=== PATIENT | female | born 1950 | race Caucasian/White ===

== ENCOUNTER 2017-10-28 16:20 | Inpatient (IN) | payer MEDICARE, OTHER ==
[~2017-10-28] VITALS: Ht 160 cm; Wt 83.2 kg
[2017-10-28 16:41] LABS: BASOPHILS # (AUTO) 0.04 x10^3/uL (0-0.1); BASOPHILS % (AUTO) 0 % (0-1); EOSINOPHILS # (AUTO) 0.16 x10^3/uL (0-0.4); EOSINOPHILS % (AUTO) 2 % (1-7); LYMPHOCYTES # (AUTO) 3.35 x10^3/uL (1-3.4); LYMPHOCYTES % (AUTO) 37 % (22-44); MD NO; MEAN CORPUSCULAR HEMOGLOBIN 30.2 pg (27.0-34.8); MEAN CORPUSCULAR HGB CONC 32.7 g/dL (32.4-35.8); MEAN CORPUSCULAR VOLUME 92.3 fL (80-100); MEAN PLATELET VOLUME 7.5 fL (7.4-10.4); MONOCYTES # (AUTO) 0.58 x10^3/uL (0.2-0.8); MONOCYTES % (AUTO) 6 % (2-9); NEUTROPHILS # (AUTO) 4.91 x10^3/uL (1.8-6.8); NEUTROPHILS % (AUTO) 54 % (42-75); PLATELET COUNT 367 x10^3/uL (130-400); RED BLOOD COUNT 4.66 x10^6/uL (3.82-5.3); RED CELL DISTRIBUTION WIDTH 14.6 % (9.6-15.2)
[2017-10-28 16:46] LABS: INTERNATIONAL NORMALIZED RATIO 1.01 (0.93-1.1); PROTHROMBIN TIME 10.4 Seconds (9.6-11.5)
[2017-10-28] MEDS ORDERED: PLEASE ENTER HEIGHT AND WEIGHT MC SCH (17:00)
[2017-10-28] MEDS: PLEASE ENTER ALLERGIES MC SCH (17:00)
[2017-10-28] MEDS ORDERED: DEXAMETHASONE 4 MG/ML, 1ML IVPush ONE (17:00)
[2017-10-28] MEDS ORDERED: LEVETIRACETAM 1,000 MG in SODIUM CHLORIDE 0.9% 100 ML IV ONE (17:00)
[2017-10-28] MEDS ORDERED: LORazepam 2 MG/ML, 1ML ONE (17:36)
[2017-10-28] MEDS ORDERED: DEXAMETHASONE 4 MG/ML, 5ML ONE (17:59)
[2017-10-28] MEDS ORDERED: FILTER 0.22 MICRON IV ONE (18:00)
[2017-10-28] MEDS ORDERED: LORazepam 2 MG/ML, 1ML IVPush ONE (18:00)
[2017-10-28] MEDS ORDERED: PHENYTOIN SODIUM 1,000 MG in SODIUM CHLORIDE 0.9% 100 ML IVPB ONE (18:00)
[2017-10-28] MEDS ORDERED: FENTANYL PF 100 MCG/2ML ONE (18:27)
[2017-10-28] MEDS ORDERED: FENTANYL PF 100 MCG/2ML IVPush ONE (18:30)
[2017-10-28] MEDS ORDERED: HYDROCODONE (19:04)
[2017-10-28] MEDS ORDERED: ASPIRIN (19:04)
[2017-10-28] MEDS ORDERED: LISINOPRIL (19:04)
[2017-10-28] MEDS ORDERED: GABAPENTIN (19:04)
[2017-10-28] MEDS ORDERED: SPIRONOLACTONE (19:04)
[2017-10-28] MEDS ORDERED: COREG (19:04)
[2017-10-28] MEDS ORDERED: BISACODYL 10 MG SUPP PR PRN (21:00)
[2017-10-28] MEDS ORDERED: ONDANSETRON 2MG/ML, 2ML IVPush PRN (21:00)
[2017-10-28] MEDS ORDERED: LORazepam 2 MG/ML, 1ML IVPush PRN (21:00)
[2017-10-28] MEDS ORDERED: POLYETHYLENE GLYCOL 17 GM PACKET PO PRN (21:00)
[2017-10-28] MEDS ORDERED: hydrALAzine 20 MG/ML, 1ML IVPush PRN (21:00)
[2017-10-28] MEDS ORDERED: ONDANSETRON ODT 4 MG PO PRN (21:00)
[2017-10-28] MEDS ORDERED: ENALAPRILAT 1.25 MG/ML, 2ML IVPush PRN (21:00)
[2017-10-28] MEDS ORDERED: LABETALOL 5MG/ML, 20ML IVPush PRN (21:00)
[2017-10-28] MEDS ORDERED: PROMETHAZINE 25 MG/ML, 1ML IM PRN (21:00)
[2017-10-28 21:31] LABS: FREE T4 (FREE THYROXINE) 0.99 ng/dL (0.76-1.46); THYROID STIMULATING HORMONE 1.19 mIU/L (0.358-3.740)
[2017-10-28 21:42] VITALS: BP 111/74
[2017-10-28 21:51] LABS: HEMOGLOBIN A1C 7.9 % (4.2-6.3)
[2017-10-28] MEDS: SODIUM CHLORIDE 0.9% 1,000 ML IV SCH (22:39)
[2017-10-28] MEDS: PANTOPRAZOLE 40 MG IV IVPush SCH (22:42)
[2017-10-28] MEDS: PHENYTOIN 100 MG CAPSULE PO SCH (22:42)
[2017-10-28] MEDS: LEVETIRACETAM 500 MG TABLET PO SCH (23:52)
[2017-10-29] MEDS: PLEASE ENTER ALLERGIES MC SCH (01:00)
[2017-10-29 02:01] VITALS: BP 114/73
[2017-10-29] MEDS: DEXAMETHASONE 4 MG TABLET PO SCH ×5 (02:01→20:39)
[2017-10-29 02:06] LABS: MICROSCOPIC AUTO
[2017-10-29 02:08] LABS: CULTURE INDICATED? NO
[2017-10-29 04:29] LABS: BASOPHILS # (AUTO) 0.01 x10^3/uL (0-0.1); BASOPHILS % (AUTO) 0 % (0-1); EOSINOPHILS % (AUTO) 0 % (1-7); LYMPHOCYTES # (AUTO) 1.05 x10^3/uL (1-3.4); LYMPHOCYTES % (AUTO) 15 % (22-44); MD NO; MEAN CORPUSCULAR HEMOGLOBIN 30.4 pg (27.0-34.8); MEAN CORPUSCULAR HGB CONC 33.5 g/dL (32.4-35.8); MEAN CORPUSCULAR VOLUME 90.8 fL (80-100); MEAN PLATELET VOLUME 7.3 fL (7.4-10.4); MONOCYTES # (AUTO) 0.04 x10^3/uL (0.2-0.8); MONOCYTES % (AUTO) 1 % (2-9); NEUTROPHILS # (AUTO) 5.89 x10^3/uL (1.8-6.8); NEUTROPHILS % (AUTO) 84 % (42-75); PLATELET COUNT 313 x10^3/uL (130-400); RED BLOOD COUNT 4.72 x10^6/uL (3.82-5.3); RED CELL DISTRIBUTION WIDTH 14.6 % (9.6-15.2)
[2017-10-29 04:44] LABS: ALBUMIN 3.6 g/dL (3.4-5.0); ANION GAP 7 mmol/L (5-15); CALCIUM 8.1 mg/dL (8.5-10.1); CHLORIDE 107 mmol/L (98-107)
[2017-10-29 04:48] LABS: ALANINE AMINOTRANSFERASE 20 U/L (12-78); ALKALINE PHOSPHATASE 54 U/L (45-117); BILIRUBIN,TOTAL 0.6 mg/dL (0.2-1.0); CHOL/HDL RATIO 4.4; CHOLESTEROL, TOTAL 167 mg/dL (140-239); CREATININE 0.88 mg/dL (0.55-1.02); HDL CHOL % 23 % (28-40); HDL CHOLESTEROL (DIRECT) 38 mg/dL (40-60); LDL CHOLESTEROL,CALCULATED 105 mg/dL (54-169); LDL/HDL RATIO 2.8 (0.5-3.0); TOTAL PROTEIN 7.1 g/dL (6.4-8.2); TRIGLYCERIDES 121 mg/dL (50-200); VLDL CHOLESTEROL 24 mg/dL (0-25)
[2017-10-29] MEDS: ACETAMINOPHEN 325 MG TABLET PO PRN (06:03)
[2017-10-29] MEDS: CARVEDILOL 3.125 MG TABLET PO SCH ×2 (06:03→20:39)
[2017-10-29 06:36] VITALS: BP 106/68
[2017-10-29] MEDS ORDERED: SODIUM CHLORIDE NASAL SPRAY 45ML BOTTLE NAS PRN (07:00)
[2017-10-29] MEDS: LEVETIRACETAM 500 MG TABLET PO SCH ×2 (08:18→20:39)
[2017-10-29] MEDS: LISINOPRIL 10 MG TABLET PO SCH (08:18)
[2017-10-29] MEDS: PANTOPRAZOLE 40 MG IV IVPush SCH (08:18)
[2017-10-29] MEDS: SODIUM CHLORIDE 0.9% 1,000 ML IV SCH (08:18)
[2017-10-29] MEDS: PHENYTOIN 100 MG CAPSULE PO SCH ×3 (08:18→20:39)
[2017-10-29] MEDS: SENNA/DOCUSATE TABLET PO SCH (08:22)
[2017-10-29] MEDS ORDERED: GADOBUTROL 10 MMOL/10 ML PFS ONE (09:29)
[2017-10-29 12:02] VITALS: BP 116/64
[2017-10-29] MEDS ORDERED: OMNIPAQUE 350 MG/ML, 100ML BOTTLE ONE (18:00)
[2017-10-29 18:31] VITALS: BP 123/80
[2017-10-29] MEDS: PANTOPRAZOLE 20MG TABLET PO SCH (20:39)
[2017-10-30] VITALS (13 sets, daily range): BP systolic 110–147; BP diastolic 51–91
[2017-10-30] MEDS: SODIUM CHLORIDE 0.9% 1,000 ML IV SCH ×3 (00:16→18:20)
[2017-10-30] MEDS: DEXAMETHASONE 4 MG TABLET PO SCH ×4 (03:28→20:03)
[2017-10-30] MEDS: CARVEDILOL 3.125 MG TABLET PO SCH ×2 (04:19→18:22)
[2017-10-30] MEDS: OXYcodone IR 5MG TABLET PO PRN ×4 (07:16→23:04)
[2017-10-30] MEDS: PHENYTOIN 100 MG CAPSULE PO SCH ×3 (08:52→20:04)
[2017-10-30] MEDS: LEVETIRACETAM 500 MG TABLET PO SCH ×2 (08:52→20:03)
[2017-10-30] MEDS: LISINOPRIL 10 MG TABLET PO SCH (08:53)
[2017-10-30] MEDS: PANTOPRAZOLE 20MG TABLET PO SCH ×2 (08:53→20:03)
[2017-10-30] MEDS: SENNA/DOCUSATE TABLET PO SCH (08:53)
[2017-10-30] MEDS: ACETAMINOPHEN 325 MG TABLET PO PRN (20:03)
[2017-10-31 01:00] VITALS: BP 126/79
[2017-10-31] MEDS ORDERED: CALCIUM CARBONATE 500 MG TAB.CHEW PO ONE (01:30)
[2017-10-31] MEDS: OXYcodone IR 5MG TABLET PO PRN ×3 (02:53→20:39)
[2017-10-31] MEDS: DEXAMETHASONE 4 MG TABLET PO SCH ×4 (02:53→20:39)
[2017-10-31 04:18] LABS: BASOPHILS # (AUTO) 0.02 x10^3/uL (0-0.1); BASOPHILS % (AUTO) 0 % (0-1); EOSINOPHILS % (AUTO) 0 % (1-7); LYMPHOCYTES # (AUTO) 1.45 x10^3/uL (1-3.4); LYMPHOCYTES % (AUTO) 13 % (22-44); MD NO; MEAN CORPUSCULAR HGB CONC 32.8 g/dL (32.4-35.8); MEAN CORPUSCULAR VOLUME 91.4 fL (80-100); MEAN PLATELET VOLUME 7.5 fL (7.4-10.4); MONOCYTES # (AUTO) 0.54 x10^3/uL (0.2-0.8); MONOCYTES % (AUTO) 5 % (2-9); NEUTROPHILS # (AUTO) 9.62 x10^3/uL (1.8-6.8); NEUTROPHILS % (AUTO) 83 % (42-75); PLATELET COUNT 322 x10^3/uL (130-400); RED BLOOD COUNT 4.17 x10^6/uL (3.82-5.3); RED CELL DISTRIBUTION WIDTH 14.5 % (9.6-15.2)
[2017-10-31 04:27] LABS: CHLORIDE 108 mmol/L (98-107)
[2017-10-31 04:36] LABS: ANION GAP 7 mmol/L (5-15); CALCIUM 8.8 mg/dL (8.5-10.1); CREATININE 0.92 mg/dL (0.55-1.02)
[2017-10-31] MEDS: SODIUM CHLORIDE 0.9% 1,000 ML IV SCH (05:35)
[2017-10-31] MEDS: CARVEDILOL 3.125 MG TABLET PO SCH ×2 (05:39→18:03)
[2017-10-31 06:45] VITALS: BP 153/77
[2017-10-31] MEDS ORDERED: FLUMAZENIL 0.1 MG/1 ML, 5ML ONE (08:19)
[2017-10-31] MEDS ORDERED: NALOXONE 1 MG/ML, 2ML ONE (08:19)
[2017-10-31] MEDS ORDERED: MIDAZOLAM 1 MG/ML, 5ML ONE (08:19)
[2017-10-31] MEDS ORDERED: FENTANYL PF 100 MCG/2ML ONE ×2 (08:19)
[2017-10-31] MEDS: LEVETIRACETAM 500 MG TABLET PO SCH ×2 (08:37→20:39)
[2017-10-31] MEDS: PHENYTOIN 100 MG CAPSULE PO SCH ×3 (08:37→20:39)
[2017-10-31 12:30] VITALS: BP 144/84
[2017-10-31] MEDS: SENNA/DOCUSATE TABLET PO SCH (16:23)
[2017-10-31] MEDS: LISINOPRIL 10 MG TABLET PO SCH (16:24)
[2017-10-31] MEDS: PANTOPRAZOLE 20MG TABLET PO SCH ×2 (16:24→20:39)
[2017-10-31 18:36] VITALS: BP 108/72
[2017-11-01] MEDS: morphine SULFATE 10 MG/ML, 1ML IVPush PRN (00:02)
[2017-11-01 00:58] VITALS: BP 133/84
[2017-11-01] MEDS: DEXAMETHASONE 4 MG TABLET PO SCH ×4 (02:52→19:44)
[2017-11-01] MEDS: OXYcodone IR 5MG TABLET PO PRN ×4 (02:53→19:44)
[2017-11-01 04:38] VITALS: BP 142/86
[2017-11-01] MEDS: CARVEDILOL 3.125 MG TABLET PO SCH ×2 (04:43→19:45)
[2017-11-01 05:19] LABS: BASOPHILS # (AUTO) 0.05 x10^3/uL (0-0.1); BASOPHILS % (AUTO) 1 % (0-1); EOSINOPHILS % (AUTO) 0 % (1-7); LYMPHOCYTES # (AUTO) 1.75 x10^3/uL (1-3.4); LYMPHOCYTES % (AUTO) 18 % (22-44); MD NO; MEAN CORPUSCULAR HEMOGLOBIN 30.1 pg (27.0-34.8); MEAN CORPUSCULAR HGB CONC 32.8 g/dL (32.4-35.8); MEAN CORPUSCULAR VOLUME 91.6 fL (80-100); MEAN PLATELET VOLUME 7.5 fL (7.4-10.4); MONOCYTES # (AUTO) 0.46 x10^3/uL (0.2-0.8); MONOCYTES % (AUTO) 5 % (2-9); NEUTROPHILS # (AUTO) 7.74 x10^3/uL (1.8-6.8); NEUTROPHILS % (AUTO) 77 % (42-75); PLATELET COUNT 311 x10^3/uL (130-400); RED BLOOD COUNT 4.56 x10^6/uL (3.82-5.3); RED CELL DISTRIBUTION WIDTH 14.5 % (9.6-15.2)
[2017-11-01 05:23] LABS: ANION GAP 10 mmol/L (5-15); CALCIUM 8.4 mg/dL (8.5-10.1); CHLORIDE 105 mmol/L (98-107); CREATININE 0.92 mg/dL (0.55-1.02)
[2017-11-01 06:35] VITALS: BP 128/90
[2017-11-01] MEDS: PHENYTOIN 100 MG CAPSULE PO SCH ×3 (07:40→19:44)
[2017-11-01] MEDS: LEVETIRACETAM 500 MG TABLET PO SCH ×2 (07:40→19:44)
[2017-11-01] MEDS: LISINOPRIL 10 MG TABLET PO SCH (07:40)
[2017-11-01] MEDS: PANTOPRAZOLE 20MG TABLET PO SCH ×2 (07:41→19:46)
[2017-11-01] MEDS: SENNA/DOCUSATE TABLET PO SCH (07:42)
[2017-11-01 13:02] VITALS: BP 108/69
[2017-11-01 19:01] VITALS: BP 112/79
[2017-11-02] MEDS: OXYcodone IR 5MG TABLET PO PRN ×5 (01:24→22:13)
[2017-11-02 01:30] VITALS: BP 116/82
[2017-11-02] MEDS: DEXAMETHASONE 4 MG TABLET PO SCH ×4 (04:24→22:15)
[2017-11-02 06:43] VITALS: BP 127/83
[2017-11-02] MEDS: LEVETIRACETAM 500 MG TABLET PO SCH ×2 (07:22→22:14)
[2017-11-02] MEDS: LISINOPRIL 10 MG TABLET PO SCH (07:22)
[2017-11-02] MEDS: PHENYTOIN 100 MG CAPSULE PO SCH ×3 (07:22→22:15)
[2017-11-02] MEDS: CARVEDILOL 3.125 MG TABLET PO SCH ×2 (07:23→22:15)
[2017-11-02] MEDS: PANTOPRAZOLE 20MG TABLET PO SCH ×2 (07:25→22:18)
[2017-11-02] MEDS: SENNA/DOCUSATE TABLET PO SCH (07:27)
[2017-11-02 12:00] VITALS: BP 126/84
[2017-11-02] MEDS: morphine SULFATE 10 MG/ML, 1ML IVPush PRN ×3 (12:25→19:57)
[2017-11-02 14:00] VITALS: BP 107/82
[2017-11-02 18:44] VITALS: BP 126/81
[2017-11-03 01:38] VITALS: BP 109/70
[2017-11-03] MEDS: OXYcodone IR 5MG TABLET PO PRN ×4 (02:01→13:22)
[2017-11-03] MEDS: DEXAMETHASONE 4 MG TABLET PO SCH ×2 (04:52→09:11)
[2017-11-03] MEDS ORDERED: ONDA4TAB13 PO (07:27)
[2017-11-03] MEDS ORDERED: OXYC5TAB3 PO (07:27)
[2017-11-03] MEDS ORDERED: PHEN100C PO (07:27)
[2017-11-03] MEDS ORDERED: DEXA4TAB66 PO (07:27)
[2017-11-03] MEDS ORDERED: LEVE500T53 PO (07:27)
[2017-11-03 07:57] VITALS: BP 127/83
[2017-11-03] MEDS: LEVETIRACETAM 500 MG TABLET PO SCH (09:11)
[2017-11-03] MEDS: SENNA/DOCUSATE TABLET PO SCH (09:11)
[2017-11-03] MEDS: PANTOPRAZOLE 20MG TABLET PO SCH (09:11)
[2017-11-03] MEDS: PHENYTOIN 100 MG CAPSULE PO SCH (09:11)
[2017-11-03] MEDS: LISINOPRIL 10 MG TABLET PO SCH (09:12)
[2017-11-03] MEDS: CARVEDILOL 3.125 MG TABLET PO SCH (09:12)
[2017-11-03 13:55] VITALS: BP 118/78
== END 2017-11-03 13:48 | disposition home health service (06) | DRG 180 ==
LOC: EDBD 16:20 → ED 18:26 → EDIP 20:48 → 3NW 21:35
PROVIDERS: ADMIT Internal Medicine; ATTEND Internal Medicine
PROC: B3151ZZ Fluoroscopy of Bilateral Common Carotid Arteries using Low Osmolar Contrast (ICD-10-PCS; 2017-10-28)
PROC: B31G1ZZ Fluoroscopy of Bilateral Vertebral Arteries using Low Osmolar Contrast (ICD-10-PCS; 2017-10-28)
PROC: B3181ZZ Fluoroscopy of Bilateral Internal Carotid Arteries using Low Osmolar Contrast (ICD-10-PCS; 2017-10-28)
PROC: B31C1ZZ Fluoroscopy of Bilateral External Carotid Arteries using Low Osmolar Contrast (ICD-10-PCS; 2017-10-28)
PROC: 0BBG3ZX Excision of Left Upper Lung Lobe, Percutaneous Approach, Diagnostic (ICD-10-PCS; principal; 2017-10-31)
DX: C34.12 Malignant neoplasm of upper lobe, left bronchus or lung (principal); G93.41 Metabolic encephalopathy; G93.6 Cerebral edema; C79.31 Secondary malignant neoplasm of brain; C78.7 Secondary malignant neoplasm of liver and intrahepatic bile duct; I65.23 Occlusion and stenosis of bilateral carotid arteries; I10 Essential (primary) hypertension; I25.10 Atherosclerotic heart disease of native coronary artery without angina pectoris; I25.2 Old myocardial infarction; I65.02 Occlusion and stenosis of left vertebral artery; I71.4 Abdominal aortic aneurysm, without rupture; J44.9 Chronic obstructive pulmonary disease, unspecified; Z90.710 Acquired absence of both cervix and uterus; Z87.891 Personal history of nicotine dependence; Z99.81 Dependence on supplemental oxygen; G62.9 Polyneuropathy, unspecified
CPT/HCPCS: 32405; 36415; 70450; 70496; 70498; 70553; 71045; 71260; 72110; 74177; 77012; 77280; 77295; 77300; 77334; 77387; 77412; 80047; 80048; 80053; 80061; 80185; 81001; 83036; 83735; 84439; 84443; 85025; 85610; 85730; 88305; 88341; 88342; 88360; 93005; 93306; 96365; 96368; 96375; 99156; 99157; A9585; C2613; J1100; J1165; J1953; J2250; J3010; Q9967; C9113; G0461; J2060; J2270; J2310; J7030

== ENCOUNTER → 2017-11-09 | Outpatient (CLI) | payer MEDICARE ==
[~2017-11-09] MED LIST: ASPIRIN; COREG; DEXA4TAB66 PO; GABAPENTIN; HYDROCODONE; LEVE500T53 PO; LISINOPRIL; ONDA4TAB13 PO; OXYC5TAB3 PO; PHEN100C PO; SPIRONOLACTONE
== END | disposition home or self-care (01) ==
LOC: PETCFH 12:19
PROVIDERS: ATTEND Radiology Radiation Oncology
DX: I72.2 Aneurysm of renal artery (principal); R91.8 Other nonspecific abnormal finding of lung field; C79.31 Secondary malignant neoplasm of brain
CPT/HCPCS: 78815; A9552

== ENCOUNTER 2017-12-12 07:42 | Day surgery (SDC) | payer MEDICARE ==
[~2017-12-12] VITALS: Ht 160 cm; Wt 80.3 kg
[~2017-12-12 07:42] MED LIST changes: -ASPIRIN; +ASPIRIN PO; -COREG; +COREG PO; -GABAPENTIN; +GABAPENTIN PO; -LISINOPRIL; +LISINOPRIL PO; -SPIRONOLACTONE; +SPIRONOLACTONE PO
[2017-12-12] MEDS ORDERED: SODIUM CHLORIDE 0.9% 1,000 ML IV SCH (08:22)
[2017-12-12 08:23] VITALS: BP 147/87
[2017-12-12] MEDS ORDERED: CEFAZOLIN PMX 1GM/50ML 50 ML IV ONE (08:30)
[2017-12-12] MEDS ORDERED: CEFAZOLIN PMX 1GM/50ML 50 ML ONE (08:47)
[2017-12-12] MEDS ORDERED: LIDOCAINE-MPF 2% ,5ML ONE (08:58)
[2017-12-12] MEDS ORDERED: FENTANYL PF 100 MCG/2ML ONE (09:03)
[2017-12-12] MEDS ORDERED: NALOXONE 1 MG/ML, 2ML ONE (09:04)
[2017-12-12] MEDS ORDERED: MIDAZOLAM 1 MG/ML, 5ML ONE (09:04)
[2017-12-12] MEDS ORDERED: FLUMAZENIL 0.1 MG/1 ML, 5ML ONE (09:04)
== END 2017-12-12 11:45 ==
LOC: OUT 07:42
PROVIDERS: ATTEND Internal Medicine Hematology & Oncology
DX: Z45.2 Encounter for adjustment and management of vascular access device (principal); C34.12 Malignant neoplasm of upper lobe, left bronchus or lung; I10 Essential (primary) hypertension; I25.10 Atherosclerotic heart disease of native coronary artery without angina pectoris; G62.9 Polyneuropathy, unspecified; E11.40 Type 2 diabetes mellitus with diabetic neuropathy, unspecified; Z90.710 Acquired absence of both cervix and uterus
CPT/HCPCS: 36561; 76937; 77001; 99156; 99157; C1788; J0690; J1642; J2250; J3010; J3490; J7030; J2310

== ENCOUNTER → 2017-12-26 | Outpatient (CLI) | payer MEDICARE ==
[~2017-12-26] MED LIST changes: +GADOBUTROL 7.5 MMOL/7.5 ML PFS ONE
== END | disposition home or self-care (01) ==
LOC: CFH 10:20
PROVIDERS: ATTEND Radiology Radiation Oncology
DX: C79.31 Secondary malignant neoplasm of brain (principal); C34.12 Malignant neoplasm of upper lobe, left bronchus or lung; I10 Essential (primary) hypertension; E11.21 Type 2 diabetes mellitus with diabetic nephropathy
CPT/HCPCS: 70553; A9585

== ENCOUNTER → 2017-12-28 | Outpatient (CLI) | payer MEDICARE ==
[~2017-12-28] MED LIST changes: +CARV25TA12 PO; -GADOBUTROL 7.5 MMOL/7.5 ML PFS ONE; +LISI-167 PO; +MORP10CA7 PO; +ONDA4TAB10 PO; +SPIR25TA5 PO
== END | disposition home or self-care (01) ==
LOC: ROC 09:34
PROVIDERS: ATTEND Radiology Radiation Oncology
DX: C79.31 Secondary malignant neoplasm of brain (principal); C34.90 Malignant neoplasm of unspecified part of unspecified bronchus or lung; I10 Essential (primary) hypertension
CPT/HCPCS: G0463

== ENCOUNTER 2017-12-31 13:23 | Inpatient (IN) | payer MEDICARE ==
[~2017-12-31] VITALS: Ht 162.6 cm; Wt 88.6 kg
[~2017-12-31 13:23] MED LIST changes: -CARV25TA12 PO; -LISI-167 PO; -MORP10CA7 PO; -ONDA4TAB10 PO; -SPIR25TA5 PO
[2017-12-31] MEDS ORDERED: SODIUM CHLORIDE FLUSH 10ML SYR IVF ONE (14:00)
[2017-12-31] MEDS ORDERED: SODIUM CHLORIDE 0.9% 1,000ML IVBOLUS ONE ×2 (14:00→17:30)
[2017-12-31] MEDS ORDERED: ACETAMINOPHEN 500 MG TABLET PO ONE (14:00)
[2017-12-31] MEDS ORDERED: PLEASE ENTER HEIGHT AND WEIGHT MC SCH (14:30)
[2017-12-31] MEDS ORDERED: ACETAMINOPHEN 500 MG TABLET ONE (14:36)
[2017-12-31 15:17] LABS: MEAN CORPUSCULAR HEMOGLOBIN 30.6 pg (27.0-34.8); MEAN CORPUSCULAR HGB CONC 34.2 g/dL (32.4-35.8); MEAN CORPUSCULAR VOLUME 89.7 fL (80-100); MEAN PLATELET VOLUME 7.3 fL (7.4-10.4); PLATELET COUNT 107 x10^3/uL (130-400); RED BLOOD COUNT 2.92 x10^6/uL (3.82-5.3); RED CELL DISTRIBUTION WIDTH 14.2 % (9.6-15.2)
[2017-12-31] MEDS ORDERED: MORP10CA7 PO (15:22)
[2017-12-31] MEDS ORDERED: LISI-167 PO (15:22)
[2017-12-31] MEDS ORDERED: CARV25TA12 PO (15:22)
[2017-12-31] MEDS ORDERED: SPIR25TA5 PO (15:22)
[2017-12-31 15:31] LABS: ALANINE AMINOTRANSFERASE 22 U/L (12-78); ALBUMIN 3.2 g/dL (3.4-5.0); ANION GAP 5 mmol/L (5-15); CALCIUM 8.5 mg/dL (8.5-10.1); CHLORIDE 105 mmol/L (98-107); CREATININE 1.03 mg/dL (0.55-1.02)
[2017-12-31 15:32] LABS: ALKALINE PHOSPHATASE 81 U/L (45-117); BILIRUBIN,TOTAL 0.5 mg/dL (0.2-1.0); TOTAL PROTEIN 6.5 g/dL (6.4-8.2)
[2017-12-31 15:48] LABS: MD YES
[2017-12-31 15:51] LABS: BAND#(MANUAL) 0.19 x10^3/uL; BANDS%(MANUAL) 7 % (0-7); LYMPH#(MANUAL) 1.84 x10^3/uL (1-3.4); LYMPHS% (MANUAL) 68 % (22-44); METAMYELOCYTES# (MANUAL) 0.11 x10^3/uL (0-0); METAMYELOCYTES% (MANUAL) 4 % (0-1); MONOS#(MANUAL) 0.22 x10^3/uL (0.3-2.7); MONOS% (MANUAL) 8 % (2-9); MYELOCYTES# (MANUAL) 0.03 x10^3/uL (0-0); MYELOCYTES% (MANUAL) 1 % (0-0); NRBC % (MANUAL) 1 % (0-1); SEG#(MANUAL) 0.32 x10^3/uL (1.8-6.8); SEGS% (MANUAL) 12 % (42-75)
[2017-12-31 15:52] LABS: <PLATELET ESTIMATE> DECREASED; <PLT MORPHOLOGY> NORMAL PLT MORPH; <RBC MORPHOLOGY> NORMAL; TOXIC GRAN 2+
[2017-12-31] MEDS ORDERED: VANCOMYCIN PER PHARMACY MC PRN ×2 (16:30→18:00)
[2017-12-31] MEDS ORDERED: CEFEPIME 1 GM in DEXTROSE 5% 50 ML IV ONE (16:30)
[2017-12-31] MEDS ORDERED: VANCOMYCIN 1,600 MG in SODIUM CHLORIDE 0.9% 250 ML IV ONE (16:30)
[2017-12-31] MEDS ORDERED: POLYETHYLENE GLYCOL 17 GM PACKET PO PRN (17:00)
[2017-12-31] MEDS ORDERED: ENALAPRILAT 1.25 MG/ML, 2ML IVPush PRN (17:00)
[2017-12-31] MEDS ORDERED: BISACODYL 10 MG SUPP PR PRN (17:00)
[2017-12-31] MEDS ORDERED: ACETAMINOPHEN 325 MG TABLET PO PRN (17:00)
[2017-12-31] MEDS: OXYcodone IR 5MG TABLET PO PRN ×2 (17:39→21:02)
[2017-12-31] MEDS ORDERED: PHARMACOKINETIC MONITORING MC PRN (18:00)
[2017-12-31] MEDS ORDERED: SODIUM CHLORIDE 0.9% 1,000 ML IV SCH (18:00)
[2017-12-31 18:14] VITALS: BP 105/55
[2017-12-31] MEDS ORDERED: PHARMACOKINETIC CONSULTATION MC ONE (18:30)
[2017-12-31 18:35] VITALS: BP 93/56
[2017-12-31] MEDS ORDERED: DOCUSATE 100 MG CAPSULE PO PRN (21:00)
[2017-12-31] MEDS: CARVEDILOL 25 MG TABLET PO SCH (21:00)
[2017-12-31] MEDS: LEVETIRACETAM 500 MG TABLET PO SCH (21:02)
[2017-12-31] MEDS: ENOXAPARIN 40 MG/0.4 ML SQ SCH (21:02)
[2017-12-31] MEDS: PIPERACILLIN/TAZO/PMX 3.375GM 50 ML IV SCH (21:02)
[2018-01-01 00:52] VITALS: BP 97/64
[2018-01-01] MEDS: OXYcodone IR 5MG TABLET PO PRN ×5 (01:18→21:21)
[2018-01-01 01:24] LABS: MICROSCOPIC NOT IND
[2018-01-01 01:35] LABS: CULTURE INDICATED? NO
[2018-01-01] MEDS: PIPERACILLIN/TAZO/PMX 3.375GM 50 ML IV SCH ×4 (03:31→20:10)
[2018-01-01 04:11] LABS: RAPID INFLUENZA A Negative (Negative); RAPID INFLUENZA B Negative (Negative)
[2018-01-01 04:56] LABS: ALANINE AMINOTRANSFERASE 22 U/L (12-78); ALBUMIN 3.1 g/dL (3.4-5.0); ANION GAP 7 mmol/L (5-15); CALCIUM 8.7 mg/dL (8.5-10.1); CHLORIDE 107 mmol/L (98-107); CREATININE 1.02 mg/dL (0.55-1.02)
[2018-01-01 04:58] LABS: ALKALINE PHOSPHATASE 81 U/L (45-117); BILIRUBIN,TOTAL 0.3 mg/dL (0.2-1.0); TOTAL PROTEIN 6.4 g/dL (6.4-8.2)
[2018-01-01 05:02] LABS: MEAN CORPUSCULAR HGB CONC 33.2 g/dL (32.4-35.8); MEAN CORPUSCULAR VOLUME 90.3 fL (80-100); RED BLOOD COUNT 2.89 x10^6/uL (3.82-5.3); RED CELL DISTRIBUTION WIDTH 14.2 % (9.6-15.2)
[2018-01-01 05:06] LABS: MD YES; MEAN PLATELET VOLUME 7.4 fL (7.4-10.4); PLATELET COUNT 86 x10^3/uL (130-400)
[2018-01-01 05:10] LABS: <PLATELET ESTIMATE> DECREASED; <PLT MORPHOLOGY> NORMAL PLT MORPH; <RBC MORPHOLOGY> NORMAL; BAND#(MANUAL) 0.39 x10^3/uL; BANDS%(MANUAL) 9 % (0-7); LYMPH#(MANUAL) 2.11 x10^3/uL (1-3.4); LYMPHS% (MANUAL) 49 % (22-44); METAMYELOCYTES# (MANUAL) 0.04 x10^3/uL (0-0); METAMYELOCYTES% (MANUAL) 1 % (0-1); MONOS#(MANUAL) 0.52 x10^3/uL (0.3-2.7); MONOS% (MANUAL) 12 % (2-9); SEG#(MANUAL) 1.25 x10^3/uL (1.8-6.8); SEGS% (MANUAL) 29 % (42-75)
[2018-01-01 07:40] VITALS: BP 103/69
[2018-01-01] MEDS: LEVETIRACETAM 500 MG TABLET PO SCH ×2 (08:57→20:10)
[2018-01-01] MEDS: LISINOPRIL 10 MG TABLET PO SCH (09:00)
[2018-01-01] MEDS: SPIRONOLACTONE 25 MG TABLET PO SCH (09:00)
[2018-01-01] MEDS: CARVEDILOL 25 MG TABLET PO SCH ×2 (09:00→20:31)
[2018-01-01 12:32] VITALS: BP 97/63
[2018-01-01] MEDS: VANCOMYCIN 1,600 MG in SODIUM CHLORIDE 0.9% 250 ML IV SCH ×2 (17:12→17:13)
[2018-01-01] MEDS: ENOXAPARIN 40 MG/0.4 ML SQ SCH (17:26)
[2018-01-01 20:10] VITALS: BP 105/70
[2018-01-02 02:39] VITALS: BP 116/79
[2018-01-02] MEDS: PIPERACILLIN/TAZO/PMX 3.375GM 50 ML IV SCH ×3 (02:51→21:15)
[2018-01-02] MEDS: OXYcodone IR 5MG TABLET PO PRN ×4 (02:51→20:32)
[2018-01-02] MEDS ORDERED: ONDANSETRON ODT 4 MG PO PRN (04:30)
[2018-01-02] MEDS: ONDANSETRON ODT 4 MG PO PRN (04:32)
[2018-01-02 04:34] LABS: ANION GAP 8 mmol/L (5-15); CALCIUM 8.1 mg/dL (8.5-10.1); CHLORIDE 107 mmol/L (98-107); CREATININE 0.83 mg/dL (0.55-1.02)
[2018-01-02 04:36] LABS: MEAN CORPUSCULAR HEMOGLOBIN 30.3 pg (27.0-34.8); MEAN CORPUSCULAR HGB CONC 33.9 g/dL (32.4-35.8); MEAN CORPUSCULAR VOLUME 89.3 fL (80-100); MEAN PLATELET VOLUME 7.5 fL (7.4-10.4); PLATELET COUNT 57 x10^3/uL (130-400); RED BLOOD COUNT 2.79 x10^6/uL (3.82-5.3); RED CELL DISTRIBUTION WIDTH 14.2 % (9.6-15.2)
[2018-01-02 05:02] LABS: MD YES
[2018-01-02 05:12] LABS: <PLATELET ESTIMATE> DECREASED; <PLT MORPHOLOGY> NORMAL PLT MORPH; <RBC MORPHOLOGY> NORMAL; BAND#(MANUAL) 1.14 x10^3/uL; BANDS%(MANUAL) 16 % (0-7); LYMPH#(MANUAL) 1.92 x10^3/uL (1-3.4); LYMPHS% (MANUAL) 27 % (22-44); METAMYELOCYTES# (MANUAL) 0.28 x10^3/uL (0-0); METAMYELOCYTES% (MANUAL) 4 % (0-1); MONOS#(MANUAL) 0.43 x10^3/uL (0.3-2.7); MONOS% (MANUAL) 6 % (2-9); MYELOCYTES# (MANUAL) 0.14 x10^3/uL (0-0); MYELOCYTES% (MANUAL) 2 % (0-0); NRBC % (MANUAL) 2 % (0-1); SEGS% (MANUAL) 45 % (42-75)
[2018-01-02 07:08] VITALS: BP 121/76
[2018-01-02] MEDS: LEVETIRACETAM 500 MG TABLET PO SCH ×2 (09:50→20:31)
[2018-01-02 11:38] LABS: HIT RESULT NEGATIVE (NEGATIVE)
[2018-01-02 12:44] VITALS: BP 116/74
[2018-01-02] MEDS: CARVEDILOL 25 MG TABLET PO SCH ×2 (14:20→20:31)
[2018-01-02] MEDS: SPIRONOLACTONE 25 MG TABLET PO SCH (14:20)
[2018-01-02] MEDS: LISINOPRIL 10 MG TABLET PO SCH (14:20)
[2018-01-02] MEDS: VANCOMYCIN 1,600 MG in SODIUM CHLORIDE 0.9% 250 ML IV SCH (19:27)
[2018-01-02 21:33] VITALS: BP 105/68
[2018-01-03 01:11] VITALS: BP 119/76
[2018-01-03] MEDS: ONDANSETRON ODT 4 MG PO PRN ×2 (02:31→15:47)
[2018-01-03] MEDS: PIPERACILLIN/TAZO/PMX 3.375GM 50 ML IV SCH ×4 (02:34→20:32)
[2018-01-03 04:33] LABS: ANION GAP 7 mmol/L (5-15); CALCIUM 8.4 mg/dL (8.5-10.1); CHLORIDE 109 mmol/L (98-107); CREATININE 0.86 mg/dL (0.55-1.02)
[2018-01-03 04:36] LABS: MEAN CORPUSCULAR HEMOGLOBIN 30.1 pg (27.0-34.8); MEAN CORPUSCULAR HGB CONC 34.1 g/dL (32.4-35.8); MEAN CORPUSCULAR VOLUME 88.4 fL (80-100); RED BLOOD COUNT 2.76 x10^6/uL (3.82-5.3); RED CELL DISTRIBUTION WIDTH 13.9 % (9.6-15.2)
[2018-01-03 04:59] LABS: MD YES
[2018-01-03 05:00] LABS: MEAN PLATELET VOLUME 7.1 fL (7.4-10.4); PLATELET COUNT 50 x10^3/uL (130-400)
[2018-01-03 05:02] LABS: <RBC MORPHOLOGY> NORMAL; BAND#(MANUAL) 1.01 x10^3/uL; BANDS%(MANUAL) 13 % (0-7); LYMPH#(MANUAL) 2.18 x10^3/uL (1-3.4); LYMPHS% (MANUAL) 28 % (22-44); METAMYELOCYTES# (MANUAL) 0.23 x10^3/uL (0-0); METAMYELOCYTES% (MANUAL) 3 % (0-1); MONOS#(MANUAL) 0.62 x10^3/uL (0.3-2.7); MONOS% (MANUAL) 8 % (2-9); MYELOCYTES# (MANUAL) 0.23 x10^3/uL (0-0); MYELOCYTES% (MANUAL) 3 % (0-0); NRBC % (MANUAL) 1 % (0-1); SEG#(MANUAL) 3.51 x10^3/uL (1.8-6.8); SEGS% (MANUAL) 45 % (42-75)
[2018-01-03 05:03] LABS: <PLATELET ESTIMATE> DECREASED; <PLT MORPHOLOGY> NORMAL PLT MORPH
[2018-01-03 07:41] VITALS: BP 120/71
[2018-01-03 08:03] VITALS: BP 135/84
[2018-01-03] MEDS: OXYcodone IR 5MG TABLET PO PRN ×3 (09:00→20:32)
[2018-01-03] MEDS: LEVETIRACETAM 500 MG TABLET PO SCH ×2 (09:40→20:32)
[2018-01-03] MEDS: CARVEDILOL 25 MG TABLET PO SCH ×2 (09:40→20:32)
[2018-01-03] MEDS: LISINOPRIL 10 MG TABLET PO SCH (09:40)
[2018-01-03] MEDS: SPIRONOLACTONE 25 MG TABLET PO SCH (09:41)
[2018-01-03] MEDS: PROMETHAZINE 25MG TABLET PO PRN (09:42)
[2018-01-03 10:55] LABS: CLOSTRIDIUM DIFFICILE ANTIGEN NEGATIVE; CLOSTRIDIUM DIFFICILE TOXIN NEGATIVE (Negative)
[2018-01-03 13:11] VITALS: BP 144/79
[2018-01-03] MEDS: LACTOBACILLUS CHEW TABLET PO SCH ×2 (15:32→20:32)
[2018-01-03 20:18] VITALS: BP 145/83
[2018-01-04 01:41] VITALS: BP 123/75
[2018-01-04] MEDS: PIPERACILLIN/TAZO/PMX 3.375GM 50 ML IV SCH (02:43)
[2018-01-04] MEDS: OXYcodone IR 5MG TABLET PO PRN ×4 (03:00→20:25)
[2018-01-04] MEDS: ONDANSETRON 2MG/ML, 2ML IVPush PRN ×2 (03:00→20:24)
[2018-01-04 05:07] LABS: MEAN CORPUSCULAR HEMOGLOBIN 30.4 pg (27.0-34.8); MEAN CORPUSCULAR HGB CONC 34.1 g/dL (32.4-35.8); MEAN PLATELET VOLUME 7.2 fL (7.4-10.4); PLATELET COUNT 54 x10^3/uL (130-400); RED BLOOD COUNT 2.89 x10^6/uL (3.82-5.3)
[2018-01-04 05:17] LABS: ANION GAP 7 mmol/L (5-15); CALCIUM 8.3 mg/dL (8.5-10.1); CHLORIDE 109 mmol/L (98-107); CREATININE 0.91 mg/dL (0.55-1.02)
[2018-01-04] MEDS: PROMETHAZINE 25MG TABLET PO PRN (05:27)
[2018-01-04 05:35] LABS: MD YES
[2018-01-04 05:37] LABS: BAND#(MANUAL) 1.27 x10^3/uL; BANDS%(MANUAL) 13 % (0-7); BASOS% (MANUAL) 1 % (0-1); LYMPH#(MANUAL) 2.06 x10^3/uL (1-3.4); LYMPHS% (MANUAL) 21 % (22-44); METAMYELOCYTES# (MANUAL) 0.59 x10^3/uL (0-0); METAMYELOCYTES% (MANUAL) 6 % (0-1); MONOS#(MANUAL) 0.59 x10^3/uL (0.3-2.7); MONOS% (MANUAL) 6 % (2-9); MYELOCYTES% (MANUAL) 2 % (0-0); SEGS% (MANUAL) 51 % (42-75)
[2018-01-04 05:38] LABS: <RBC MORPHOLOGY> NORMAL
[2018-01-04 05:39] LABS: <PLATELET ESTIMATE> DECREASED; <PLT MORPHOLOGY> NORMAL PLT MORPH
[2018-01-04 08:04] VITALS: BP 115/56
[2018-01-04] MEDS: LACTOBACILLUS CHEW TABLET PO SCH ×3 (08:30→20:24)
[2018-01-04] MEDS: LEVETIRACETAM 500 MG TABLET PO SCH ×2 (08:30→20:24)
[2018-01-04] MEDS: CARVEDILOL 25 MG TABLET PO SCH ×2 (08:31→20:25)
[2018-01-04] MEDS: SPIRONOLACTONE 25 MG TABLET PO SCH (08:31)
[2018-01-04] MEDS: LISINOPRIL 10 MG TABLET PO SCH (08:31)
[2018-01-04] MEDS ORDERED: POTASSIUM CHLORIDE 20 MEQ TAB.ER.PRT PO ONE (09:00)
[2018-01-04] MEDS ORDERED: LOPERAMIDE 2 MG CAPSULE PO PRN (09:30)
[2018-01-04] MEDS ORDERED: LOPERAMIDE 2 MG CAPSULE PO ONE (09:30)
[2018-01-04] MEDS: ONDANSETRON ODT 4 MG PO PRN (10:11)
[2018-01-04 12:18] VITALS: BP 119/75
[2018-01-04] MEDS: PROCHLORPERAZINE 5 MG/ML, 2ML IVPush PRN ×2 (15:25→23:36)
[2018-01-04 18:30] VITALS: BP 117/84
[2018-01-04 23:29] VITALS: BP 118/75
[2018-01-05] MEDS: OXYcodone IR 5MG TABLET PO PRN ×4 (00:37→12:35)
[2018-01-05] MEDS: ONDANSETRON 2MG/ML, 2ML IVPush PRN (04:45)
[2018-01-05 05:25] LABS: CALCIUM 8.1 mg/dL (8.5-10.1); CHLORIDE 110 mmol/L (98-107)
[2018-01-05 05:29] LABS: ANION GAP 8 mmol/L (5-15); CREATININE 0.76 mg/dL (0.55-1.02)
[2018-01-05 05:51] LABS: MEAN CORPUSCULAR HEMOGLOBIN 30.5 pg (27.0-34.8); MEAN CORPUSCULAR HGB CONC 33.9 g/dL (32.4-35.8); RED BLOOD COUNT 2.91 x10^6/uL (3.82-5.3); RED CELL DISTRIBUTION WIDTH 14.4 % (9.6-15.2)
[2018-01-05 06:33] LABS: MD YES; MEAN PLATELET VOLUME 7.5 fL (7.4-10.4); PLATELET COUNT 89 x10^3/uL (130-400)
[2018-01-05 06:39] LABS: <PLATELET ESTIMATE> DECREASED; <PLT MORPHOLOGY> NORMAL PLT MORPH; <RBC MORPHOLOGY> NORMAL; BAND#(MANUAL) 1.76 x10^3/uL; BANDS%(MANUAL) 18 % (0-7); LYMPH#(MANUAL) 2.16 x10^3/uL (1-3.4); LYMPHS% (MANUAL) 22 % (22-44); METAMYELOCYTES# (MANUAL) 0.59 x10^3/uL (0-0); METAMYELOCYTES% (MANUAL) 6 % (0-1); MONOS#(MANUAL) 0.98 x10^3/uL (0.3-2.7); MONOS% (MANUAL) 10 % (2-9); SEG#(MANUAL) 4.31 x10^3/uL (1.8-6.8); SEGS% (MANUAL) 44 % (42-75)
[2018-01-05 07:24] VITALS: BP 144/80
[2018-01-05] MEDS: LACTOBACILLUS CHEW TABLET PO SCH (08:03)
[2018-01-05] MEDS: SPIRONOLACTONE 25 MG TABLET PO SCH (08:03)
[2018-01-05] MEDS: ONDANSETRON ODT 4 MG PO PRN ×2 (08:03→12:35)
[2018-01-05] MEDS: LEVETIRACETAM 500 MG TABLET PO SCH (08:03)
[2018-01-05] MEDS: LISINOPRIL 10 MG TABLET PO SCH (08:03)
[2018-01-05] MEDS: CARVEDILOL 25 MG TABLET PO SCH (08:03)
[2018-01-05] MEDS ORDERED: ONDA4TAB10 PO ×2 (09:51→09:58)
== END 2018-01-05 13:20 | disposition home or self-care (01) | DRG 808 ==
LOC: ED 15:05 → EDIP 16:18 → 3NW 17:45
PROVIDERS: ADMIT Hospitalist; ATTEND Hospitalist
DX: D70.9 Neutropenia, unspecified (principal); G93.40 Encephalopathy, unspecified; C79.31 Secondary malignant neoplasm of brain; C34.90 Malignant neoplasm of unspecified part of unspecified bronchus or lung; E44.1 Mild protein-calorie malnutrition; E87.1 Hypo-osmolality and hyponatremia; E11.65 Type 2 diabetes mellitus with hyperglycemia; I25.10 Atherosclerotic heart disease of native coronary artery without angina pectoris; G40.909 Epilepsy, unspecified, not intractable, without status epilepticus; F17.210 Nicotine dependence, cigarettes, uncomplicated; E87.6 Hypokalemia; M79.1 Myalgia; R19.7 Diarrhea, unspecified; I65.29 Occlusion and stenosis of unspecified carotid artery; R50.81 Fever presenting with conditions classified elsewhere; I11.9 Hypertensive heart disease without heart failure; I25.2 Old myocardial infarction; Z83.3 Family history of diabetes mellitus; Z85.118 Personal history of other malignant neoplasm of bronchus and lung; Z86.73 Personal history of transient ischemic attack (TIA), and cerebral infarction without residual deficits; Z90.710 Acquired absence of both cervix and uterus; Z92.21 Personal history of antineoplastic chemotherapy; Z92.3 Personal history of irradiation; Z68.33 Body mass index [BMI] 33.0-33.9, adult
CPT/HCPCS: 36415; 71045; 80048; 80053; 80202; 81003; 83605; 84145; 85025; 86022; 87040; 87046; 87324; 87400; 89055; 93005; 96374; 99285; J0692; J1650; J2405; J2543; J3370; Q0162; Q0169; J0780; J7030; J7050

== ENCOUNTER → 2018-02-24 | Outpatient (CLI) | payer MEDICARE ==
[~2018-02-24] MED LIST changes: +CARV25TA12 PO; +LISI-167 PO; +MORP10CA7 PO; +OMNIPAQUE 350 MG/ML, 100ML BOTTLE ONE; +ONDA4TAB10 PO; +SPIR25TA5 PO
== END | disposition home or self-care (01) ==
LOC: CFH 13:18
PROVIDERS: ATTEND Internal Medicine Hematology & Oncology
DX: R91.8 Other nonspecific abnormal finding of lung field (principal); R59.0 Localized enlarged lymph nodes; I71.4 Abdominal aortic aneurysm, without rupture; M48.56XA Collapsed vertebra, not elsewhere classified, lumbar region, initial encounter for fracture; C34.12 Malignant neoplasm of upper lobe, left bronchus or lung
CPT/HCPCS: 71260; 74177; Q9967

== ENCOUNTER 2018-04-07 10:21 | Emergency (ER) | payer MEDICARE ==
[~2018-04-07] VITALS: Ht 162.6 cm; Wt 74.1 kg
[~2018-04-07 10:21] MED LIST changes: -OMNIPAQUE 350 MG/ML, 100ML BOTTLE ONE
[2018-04-07] MEDS ORDERED: SODIUM CHLORIDE FLUSH 10ML SYR IVF ONE (11:30)
[2018-04-07] MEDS ORDERED: KETOROLAC 60 MG/2 ML IVPush ONE (11:30)
[2018-04-07 12:16] LABS: BASOPHILS # (AUTO) 0.01 x10^3/uL (0-0.1); BASOPHILS % (AUTO) 0 % (0-1); EOSINOPHILS # (AUTO) 0.07 x10^3/uL (0-0.4); EOSINOPHILS % (AUTO) 2 % (1-7); LYMPHOCYTES # (AUTO) 1.34 x10^3/uL (1-3.4); LYMPHOCYTES % (AUTO) 28 % (22-44); MD NO; MEAN CORPUSCULAR HEMOGLOBIN 30.2 pg (27.0-34.8); MEAN CORPUSCULAR HGB CONC 32.7 g/dL (32.4-35.8); MEAN CORPUSCULAR VOLUME 92.3 fL (80-100); MEAN PLATELET VOLUME 7.3 fL (7.4-10.4); MONOCYTES # (AUTO) 0.33 x10^3/uL (0.2-0.8); MONOCYTES % (AUTO) 7 % (2-9); NEUTROPHILS # (AUTO) 2.97 x10^3/uL (1.8-6.8); NEUTROPHILS % (AUTO) 63 % (42-75); PLATELET COUNT 255 x10^3/uL (130-400); RED BLOOD COUNT 4.14 x10^6/uL (3.82-5.3); RED CELL DISTRIBUTION WIDTH 16.7 % (9.6-15.2)
[2018-04-07] MEDS ORDERED: KETOROLAC 30 MG/1 ML ONE (12:18)
[2018-04-07 12:28] LABS: ALBUMIN 3.6 g/dL (3.4-5.0); ANION GAP 8 mmol/L (5-15); CALCIUM 9.3 mg/dL (8.5-10.1); CHLORIDE 104 mmol/L (98-107)
[2018-04-07 12:35] LABS: ALANINE AMINOTRANSFERASE 15 U/L (12-78); ALKALINE PHOSPHATASE 65 U/L (45-117); BILIRUBIN,TOTAL 0.4 mg/dL (0.2-1.0); TOTAL PROTEIN 7.3 g/dL (6.4-8.2); TROPONIN I < 0.015 ng/mL (0.000-0.045)
[2018-04-07] MEDS ORDERED: OMNIPAQUE 350 MG/ML, 100ML BOTTLE ONE (13:07)
[2018-04-07 14:25] LABS: MICROSCOPIC NOT IND
[2018-04-07 14:33] LABS: CULTURE INDICATED? NO
[2018-04-07 16:27] VITALS: BP 150/80
== END 2018-04-07 16:30 | disposition home or self-care (01) ==
LOC: ED 13:11
DX: G89.29 Other chronic pain (principal); R07.89 Other chest pain; M54.5 Low back pain; C34.90 Malignant neoplasm of unspecified part of unspecified bronchus or lung; I25.2 Old myocardial infarction; E11.9 Type 2 diabetes mellitus without complications
CPT/HCPCS: 36415; 71275; 74021; 80053; 81003; 84484; 85025; 93005; 96374; 99285; J1885; Q9967

== ENCOUNTER → 2018-04-17 | Outpatient (CLI) | payer MEDICARE ==
[~2018-04-17] MED LIST changes: +GADOBUTROL 7.5 MMOL/7.5 ML PFS ONE
== END | disposition home or self-care (01) ==
LOC: CFH 16:03
PROVIDERS: ATTEND Radiology Radiation Oncology
DX: G93.9 Disorder of brain, unspecified (principal); R60.0 Localized edema
CPT/HCPCS: 70553; A9585

== ENCOUNTER 2018-04-19 09:16 | Outpatient (CLI) | payer MEDICARE ==
[~2018-04-19 09:16] MED LIST changes: -GADOBUTROL 7.5 MMOL/7.5 ML PFS ONE
[2018-04-26] MEDS ORDERED: CARV12.543 PO (13:16)
[2018-04-26] MEDS ORDERED: DEXA4TAB66 PO (13:16)
== END 2018-04-26 10:47 | disposition home or self-care (01) ==
LOC: ROC 09:16
PROVIDERS: ATTEND Radiology Radiation Oncology
DX: Z02.9 Encounter for administrative examinations, unspecified (principal)

== ENCOUNTER 2018-04-20 09:58 | Inpatient (IN) | payer MEDICARE ==
[~2018-04-20] VITALS: Ht 172.7 cm; Wt 72.5 kg
[2018-04-20] MEDS ORDERED: SODIUM CHLORIDE FLUSH 10ML SYR IVF ONE (10:30)
[2018-04-20] MEDS ORDERED: MORPHINE SULFATE 4 MG/ML, 1ML ONE ×3 (10:59→16:31)
[2018-04-20 11:04] LABS: BASOPHILS # (AUTO) 0.02 x10^3/uL (0-0.1); BASOPHILS % (AUTO) 1 % (0-1); EOSINOPHILS # (AUTO) 0.12 x10^3/uL (0-0.4); EOSINOPHILS % (AUTO) 3 % (1-7); LYMPHOCYTES % (AUTO) 26 % (22-44); MD NO; MEAN CORPUSCULAR HEMOGLOBIN 29.5 pg (27.0-34.8); MEAN CORPUSCULAR HGB CONC 32.5 g/dL (32.4-35.8); MEAN CORPUSCULAR VOLUME 90.7 fL (80-100); MEAN PLATELET VOLUME 7.5 fL (7.4-10.4); MONOCYTES # (AUTO) 0.27 x10^3/uL (0.2-0.8); MONOCYTES % (AUTO) 7 % (2-9); NEUTROPHILS # (AUTO) 2.47 x10^3/uL (1.8-6.8); NEUTROPHILS % (AUTO) 64 % (42-75); PLATELET COUNT 213 x10^3/uL (130-400); RED BLOOD COUNT 4.32 x10^6/uL (3.82-5.3); RED CELL DISTRIBUTION WIDTH 15.5 % (9.6-15.2)
[2018-04-20] MEDS: MORPHINE SULFATE 4 MG/ML, 1ML IVPush PRN ×4 (11:04→19:34)
[2018-04-20 11:15] LABS: ALANINE AMINOTRANSFERASE 17 U/L (12-78); ALBUMIN 3.3 g/dL (3.4-5.0); ANION GAP 7 mmol/L (5-15); CALCIUM 8.6 mg/dL (8.5-10.1); CHLORIDE 107 mmol/L (98-107)
[2018-04-20 11:18] LABS: ALKALINE PHOSPHATASE 62 U/L (45-117); BILIRUBIN,TOTAL 0.4 mg/dL (0.2-1.0); TOTAL PROTEIN 6.8 g/dL (6.4-8.2); TROPONIN I < 0.015 ng/mL (0.000-0.045)
[2018-04-20] MEDS ORDERED: DEXAMETHASONE 4 MG TABLET PO ONE (13:00)
[2018-04-20 13:32] LABS: MICROSCOPIC NOT IND
[2018-04-20 13:36] LABS: CULTURE INDICATED? NO
[2018-04-20] MEDS ORDERED: DEXAMETHASONE 4 MG TABLET ONE (13:41)
[2018-04-20] MEDS ORDERED: DEXAMETHASONE 4 MG/ML, 1ML ONE (13:47)
[2018-04-20] MEDS ORDERED: DEXAMETHASONE 4 MG/ML, 1ML IVPush ONE (14:00)
[2018-04-20 14:33] VITALS: BP 154/93
[2018-04-20] MEDS ORDERED: ONDANSETRON 2MG/ML, 2ML IVPush PRN (15:30)
[2018-04-20] MEDS ORDERED: MAGNESIUM SULFATE PMX 2GM/50ML 50 ML IV ONE (15:30)
[2018-04-20] MEDS ORDERED: hydrALAzine 20 MG/ML, 1ML IVPush PRN (15:30)
[2018-04-20 17:09] LABS: TROPONIN I < 0.015 ng/mL (0.000-0.045)
[2018-04-20] MEDS: DEXAMETHASONE 4 MG/ML, 1ML IVPush SCH (19:34)
[2018-04-20] MEDS: CARVEDILOL 25 MG TABLET PO SCH (19:41)
[2018-04-20 19:46] VITALS: BP 161/122
[2018-04-20 20:31] LABS: TROPONIN I < 0.015 ng/mL (0.000-0.045)
[2018-04-20] MEDS: LEVETIRACETAM 500 MG in SODIUM CHLORIDE 0.9% 100 ML IV SCH (21:13)
[2018-04-20] MEDS: OXYcodone IR 5MG TABLET PO PRN (21:13)
[2018-04-20] MEDS ORDERED: HYDROmorphone 2 MG/ML, 1ML ONE (22:16)
[2018-04-20] MEDS: HYDROmorphone 1 MG/ML, 1ML IV PRN (22:20)
[2018-04-20] MEDS: LORazepam 2 MG/ML, 1ML IVPush PRN (22:21)
[2018-04-21 01:36] VITALS: BP 147/79
[2018-04-21] MEDS ORDERED: HYDROmorphone 2 MG/ML, 1ML ONE ×5 (01:45→21:43)
[2018-04-21] MEDS: HYDROmorphone 1 MG/ML, 1ML IV PRN ×5 (02:02→21:50)
[2018-04-21 05:49] LABS: BASOPHILS # (AUTO) 0.02 x10^3/uL (0-0.1); BASOPHILS % (AUTO) 0 % (0-1); EOSINOPHILS # (AUTO) 0.02 x10^3/uL (0-0.4); EOSINOPHILS % (AUTO) 1 % (1-7); LYMPHOCYTES # (AUTO) 1.28 x10^3/uL (1-3.4); LYMPHOCYTES % (AUTO) 24 % (22-44); MD NO; MEAN CORPUSCULAR HEMOGLOBIN 30.1 pg (27.0-34.8); MEAN CORPUSCULAR HGB CONC 33.1 g/dL (32.4-35.8); MEAN PLATELET VOLUME 7.6 fL (7.4-10.4); MONOCYTES # (AUTO) 0.35 x10^3/uL (0.2-0.8); MONOCYTES % (AUTO) 6 % (2-9); NEUTROPHILS # (AUTO) 3.74 x10^3/uL (1.8-6.8); NEUTROPHILS % (AUTO) 69 % (42-75); PLATELET COUNT 216 x10^3/uL (130-400); RED BLOOD COUNT 4.22 x10^6/uL (3.82-5.3)
[2018-04-21 06:03] LABS: ANION GAP 10 mmol/L (5-15); CALCIUM 8.9 mg/dL (8.5-10.1); CHLORIDE 105 mmol/L (98-107); CREATININE 0.54 mg/dL (0.55-1.02)
[2018-04-21] MEDS ORDERED: PANTOPRAZOLE 40 MG IV IVPush SCH (07:30)
[2018-04-21] MEDS: LEVETIRACETAM 500 MG in SODIUM CHLORIDE 0.9% 100 ML IV SCH (09:20)
[2018-04-21] MEDS: DEXAMETHASONE 4 MG/ML, 1ML IVPush SCH (09:21)
[2018-04-21] MEDS: CARVEDILOL 25 MG TABLET PO SCH ×2 (09:21→21:49)
[2018-04-21 09:30] VITALS: BP 157/84
[2018-04-21] MEDS: OXYcodone IR 5MG TABLET PO PRN ×4 (09:48→23:23)
[2018-04-21 13:07] VITALS: BP 133/78
[2018-04-21] MEDS: LORazepam 2 MG/ML, 1ML IVPush PRN ×2 (13:17→20:03)
[2018-04-21] MEDS: DEXAMETHASONE 4 MG TABLET PO SCH ×2 (14:26→21:49)
[2018-04-21 20:00] VITALS: BP_SYST 160; BP_SYST 163; BP_DIAS 94; BP_DIAS 95
[2018-04-21] MEDS ORDERED: DEXAMETHASONE 1 MG TABLET PO SCH (21:00)
[2018-04-21] MEDS: LEVETIRACETAM 500 MG TABLET PO SCH (21:49)
[2018-04-22] MEDS ORDERED: HYDROmorphone 2 MG/ML, 1ML ONE ×5 (01:45→19:10)
[2018-04-22] MEDS: HYDROmorphone 1 MG/ML, 1ML IV PRN ×5 (01:48→19:17)
[2018-04-22 01:56] VITALS: BP 133/88
[2018-04-22] MEDS: DEXAMETHASONE 4 MG TABLET PO SCH ×3 (05:52→21:15)
[2018-04-22] MEDS: PANTOPRAZOLE 20MG TABLET PO SCH (05:52)
[2018-04-22] MEDS: OXYcodone IR 5MG TABLET PO PRN ×3 (05:52→23:22)
[2018-04-22 07:53] VITALS: BP 149/90
[2018-04-22] MEDS: LEVETIRACETAM 500 MG TABLET PO SCH ×2 (08:29→21:15)
[2018-04-22] MEDS: CARVEDILOL 25 MG TABLET PO SCH ×2 (08:30→21:15)
[2018-04-22] MEDS: LORazepam 2 MG/ML, 1ML IVPush PRN ×2 (10:16→21:15)
[2018-04-22 12:33] VITALS: BP 154/84
[2018-04-22 19:16] VITALS: BP 146/85
[2018-04-22] MEDS: ACETAMINOPHEN 325 MG TABLET PO PRN (23:22)
[2018-04-23] MEDS ORDERED: HYDROmorphone 2 MG/ML, 1ML ONE ×4 (03:08→19:34)
[2018-04-23] MEDS: HYDROmorphone 1 MG/ML, 1ML IV PRN ×4 (03:11→19:37)
[2018-04-23 03:21] VITALS: BP 137/74
[2018-04-23] MEDS: PANTOPRAZOLE 20MG TABLET PO SCH (05:15)
[2018-04-23] MEDS: DEXAMETHASONE 4 MG TABLET PO SCH ×3 (05:15→22:06)
[2018-04-23] MEDS: ACETAMINOPHEN 325 MG TABLET PO PRN (05:19)
[2018-04-23 08:17] VITALS: BP 132/75
[2018-04-23] MEDS: LORazepam 2 MG/ML, 1ML IVPush PRN ×2 (08:52→17:28)
[2018-04-23] MEDS: LEVETIRACETAM 500 MG TABLET PO SCH ×2 (08:52→22:06)
[2018-04-23] MEDS: CARVEDILOL 25 MG TABLET PO SCH ×2 (08:52→22:06)
[2018-04-23 15:59] VITALS: BP 133/82
[2018-04-23] MEDS: OXYcodone IR 5MG TABLET PO PRN ×2 (16:34→22:20)
[2018-04-23 18:41] VITALS: BP 126/68
[2018-04-24 03:19] VITALS: BP 144/68
[2018-04-24] MEDS: OXYcodone IR 5MG TABLET PO PRN ×3 (04:38→22:20)
[2018-04-24] MEDS: LORazepam 2 MG/ML, 1ML IVPush PRN (06:08)
[2018-04-24] MEDS: PANTOPRAZOLE 20MG TABLET PO SCH (06:08)
[2018-04-24] MEDS: DEXAMETHASONE 4 MG TABLET PO SCH ×3 (06:08→20:14)
[2018-04-24 08:15] VITALS: BP 165/82
[2018-04-24 08:38] VITALS: BP 132/66
[2018-04-24] MEDS: LEVETIRACETAM 500 MG TABLET PO SCH ×2 (08:45→20:13)
[2018-04-24] MEDS: CARVEDILOL 25 MG TABLET PO SCH (09:00)
[2018-04-24] MEDS ORDERED: HYDROmorphone 2 MG/ML, 1ML ONE ×2 (13:50→17:59)
[2018-04-24 13:51] VITALS: BP 146/74
[2018-04-24] MEDS: HYDROmorphone 1 MG/ML, 1ML IV PRN (18:02)
[2018-04-24 18:25] VITALS: BP 136/77
[2018-04-24] MEDS: CARVEDILOL 12.5 MG TABLET PO SCH (20:13)
[2018-04-25 01:09] VITALS: BP 145/79
[2018-04-25] MEDS: OXYcodone IR 5MG TABLET PO PRN ×4 (02:11→20:26)
[2018-04-25] MEDS: DEXAMETHASONE 4 MG TABLET PO SCH ×4 (02:11→20:26)
[2018-04-25] MEDS: PANTOPRAZOLE 20MG TABLET PO SCH (06:12)
[2018-04-25 06:51] VITALS: BP 139/82
[2018-04-25 08:41] LABS: BASOPHILS # (AUTO) 0.02 x10^3/uL (0-0.1); BASOPHILS % (AUTO) 0 % (0-1); EOSINOPHILS % (AUTO) 0 % (1-7); LYMPHOCYTES # (AUTO) 0.84 x10^3/uL (1-3.4); LYMPHOCYTES % (AUTO) 12 % (22-44); MD NO; MEAN CORPUSCULAR HEMOGLOBIN 29.9 pg (27.0-34.8); MEAN CORPUSCULAR VOLUME 90.6 fL (80-100); MONOCYTES # (AUTO) 0.19 x10^3/uL (0.2-0.8); MONOCYTES % (AUTO) 3 % (2-9); NEUTROPHILS # (AUTO) 6.13 x10^3/uL (1.8-6.8); NEUTROPHILS % (AUTO) 85 % (42-75); PLATELET COUNT 249 x10^3/uL (130-400); RED BLOOD COUNT 4.66 x10^6/uL (3.82-5.3); RED CELL DISTRIBUTION WIDTH 16.6 % (9.6-15.2)
[2018-04-25 08:48] LABS: ALBUMIN 3.2 g/dL (3.4-5.0); ANION GAP 9 mmol/L (5-15); CALCIUM 8.4 mg/dL (8.5-10.1); CHLORIDE 103 mmol/L (98-107)
[2018-04-25 08:51] LABS: ALANINE AMINOTRANSFERASE 16 U/L (12-78); ALKALINE PHOSPHATASE 66 U/L (45-117); BILIRUBIN,TOTAL 0.4 mg/dL (0.2-1.0); CREATININE 0.79 mg/dL (0.55-1.02); TOTAL PROTEIN 6.5 g/dL (6.4-8.2)
[2018-04-25] MEDS: CARVEDILOL 12.5 MG TABLET PO SCH ×2 (08:58→20:27)
[2018-04-25] MEDS: LEVETIRACETAM 500 MG TABLET PO SCH ×2 (08:58→20:26)
[2018-04-25 12:52] VITALS: BP 117/77
[2018-04-25] MEDS: LORazepam 2 MG/ML, 1ML IVPush PRN ×2 (16:00→22:51)
[2018-04-25 20:20] VITALS: BP 152/76
[2018-04-26 01:42] VITALS: BP 155/95
[2018-04-26] MEDS: DEXAMETHASONE 4 MG TABLET PO SCH ×2 (02:17→07:53)
[2018-04-26] MEDS: OXYcodone IR 5MG TABLET PO PRN ×3 (02:17→09:23)
[2018-04-26] MEDS: PANTOPRAZOLE 20MG TABLET PO SCH (05:52)
[2018-04-26 07:32] VITALS: BP 157/78
[2018-04-26] MEDS ORDERED: HYDROmorphone 2 MG/ML, 1ML ONE ×2 (07:46→13:11)
[2018-04-26] MEDS: HYDROmorphone 1 MG/ML, 1ML IV PRN ×2 (07:50→13:15)
[2018-04-26] MEDS: LEVETIRACETAM 500 MG TABLET PO SCH (07:53)
[2018-04-26] MEDS: CARVEDILOL 12.5 MG TABLET PO SCH (07:54)
[2018-04-26] MEDS ORDERED: CARV12.543 PO (13:16)
[2018-04-26] MEDS ORDERED: DEXA4TAB66 PO (13:16)
== END 2018-04-26 13:59 | disposition hospice, home (50) | DRG 80 ==
LOC: ED 10:15 → EDIP 13:05 → 4WST 14:08 → 4EST 16:34 → 3NW 04-21 12:51
PROVIDERS: ADMIT Internal Medicine; ATTEND Internal Medicine
PROC: 0T9B70Z Drainage of Bladder with Drainage Device, Via Natural or Artificial Opening (ICD-10-PCS; principal; 2018-04-20)
DX: G93.6 Cerebral edema (principal); G93.41 Metabolic encephalopathy; I61.1 Nontraumatic intracerebral hemorrhage in hemisphere, cortical; C34.90 Malignant neoplasm of unspecified part of unspecified bronchus or lung; E44.1 Mild protein-calorie malnutrition; C79.31 Secondary malignant neoplasm of brain; C78.7 Secondary malignant neoplasm of liver and intrahepatic bile duct; G40.909 Epilepsy, unspecified, not intractable, without status epilepticus; I25.10 Atherosclerotic heart disease of native coronary artery without angina pectoris; I25.2 Old myocardial infarction; I65.29 Occlusion and stenosis of unspecified carotid artery; Z85.118 Personal history of other malignant neoplasm of bronchus and lung; F17.200 Nicotine dependence, unspecified, uncomplicated; Z51.5 Encounter for palliative care; W18.39XA Other fall on same level, initial encounter; G89.29 Other chronic pain; M54.5 Low back pain; E11.42 Type 2 diabetes mellitus with diabetic polyneuropathy; I11.9 Hypertensive heart disease without heart failure; R29.6 Repeated falls; Z82.49 Family history of ischemic heart disease and other diseases of the circulatory system; Z83.3 Family history of diabetes mellitus; Z90.710 Acquired absence of both cervix and uterus; Z86.73 Personal history of transient ischemic attack (TIA), and cerebral infarction without residual deficits; Y93.89 Activity, other specified; Y92.89 Other specified places as the place of occurrence of the external cause
CPT/HCPCS: 36415; 70450; 71045; 72125; 73050; 74021; 80048; 80053; 81003; 82962; 83735; 84100; 84484; 85025; 93005; G0378; J1100; J1170; J1953; C9113; J2060; J3475